=== PATIENT | female | born 1965 | race Caucasian/White ===

== ENCOUNTER 2017-09-04 18:43 | Emergency (ER) | payer SELFPAY ==
[~2017-09-04] VITALS: Ht 152.4 cm; Wt 88.5 kg
[~2017-09-04 18:43] MED LIST: BLISOVI FE 1-21 EACH PO; SERTRALINE HCL100 MG PO
--- NOTE | 2017-09-04 19:21 | ED GENERAL ADULT ---
History of Present Illness General Chief Complaint: General Adult Stated Complaint: [facility],"EPISODE OF BURNING IN BACK AND CHEST" Source: patient Exam Limitations: no limitations Vital Signs & Intake/Output Vital Signs & Intake/Output Vital Signs Date Time Temp Pulse Resp B/P B/P Pulse O2 O2 Flow FiO2 Mean Ox Delivery Rate 09/04 2219 98.9 76 20 112/75 98 Room Air 09/04 2023 97.0 67 16 124/72 97 Room Air 09/04 1909 98.3 80 16 142/81 98 Room Air Room Air Allergies Coded Allergies: No Known Allergies (09/04/17) Reconcile Medications Aspirin (Ecotrin*) 81 MG TABLET.DR 1 TAB PO DAILY HEART/BLOOD (Reported) Multiple Vitamin (Multivitamins) 1 EACH TABLET 1 TAB PO DAILY SUPPLEMENT ( Reported) Norethindrone-E.estradiol-Iron (Blisovi Fe 1-20 Tablet) 1 MG-20 MCG (21)/75 MG ( 7) TABLET 1 TAB PO DAILY CONTROL (Reported) Sertraline HCl 100 MG TABLET 1.5 TAB PO DAILY MENTAL HEALTH (Reported) Triage Note: PT TO TRIAGE WITH PAIN ACCROSS HER SHOULDER BLADES AT WORK. PT STATES HER CHEST ALSO FELT BURNING. PT FELT DIZZY SWEATY AND NAUSEA. ALL SYMPTOMDS STARTED AT 1700 Triage Nurses Notes Reviewed? yes Onset: Abrupt Duration: hour(s): Timing: recent history Injury Environment: work Severity: severe Severity Numbers: 9 No Modifying Factors: none Associated Symptoms: chest pain HPI: Patient is a 51-year-old female presenting to the emergency department with chief complaint of chest pain with associated diaphoresis and nausea that started approximately 4:45 PM and lasted approximately 25-30 minutes and then resolve slowly. Patient reports she feels fatigued. She described the pain as burning in nature. Pain does not radiate. Currently asymptomatic. Similar symptoms 3 months ago and she was evaluated by [facility] and had an outpatient stress test which was negative. Patient denies any recent travel, no recent surgeries. She does take hormonal supplements for history of endometriosis. Denies any vomiting but has had nausea. Denies any change in bowel or bladder function. She does admit that she's been under a lot of stress lately. (Josie JOHN,June) Past History Travel History Traveled to [place] past 21 day No Medical History Any Pertinent Medical History? 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 No (June Torres) Review of Systems Review of Systems Constitutional: Reports: malaise, weakness. Comments Review of systems: See HPI, All other systems negative. Constitutional, no chills fever or weight loss HEENT: No visual changes no sore throat no congestion Cardiovascular: No palpitation , orthopnea or ankle swelling Skin, no jaundice no rashes Respiratory: No dyspnea cough sputum or hemoptysis GI:no vomiting : No dysuria No hematuria Muscle skeletal: no back pain, no neck pain, Neurologic: No numbness no confusion Psych: No stress anxiety or depression,. Heme/endocrine: No bruising no bleeding no polyuria or polydipsia Immunology: No splenectomy or history of AIDS (June Torres) Physical Exam Physical Exam General Appearance: well developed/nourished, no apparent distress, alert, awake , comfortable Comments: Well-developed well-nourished person in no acute distress HEENT: Nose is atraumatic. External auditory canal and Tympanic membranes clear. Pharynx normal. No swelling or edema. Neck: Supple, no lymphadenopathy, Back: Nontender, no CVA tenderness. Full range of motion Cardiovascular: Regular rate and rhythms no murmurs rubs or gallops, normal JVP Respiratory: Chest nontender. No respiratory distress.breath sounds clear to auscultation bilaterally Abdomen: Soft, nontender nondistended, no appreciable organomegaly. Normal bowel sounds. No ascites, no rebound or guarding. Extremity: No edema, no calf tenderness to palpation, normal and equal pulses. Neuro: Alert oriented x3, motor sensory normal Skin: No appreciable rash on exposed skin, skin is warm and dry. Psych: Mood and affect is normal, memory and judgment is normal. Core Measures ACS in differential dx? Yes CVA/TIA Diagnosis: No Sepsis Present: No Sepsis Focused Exam Completed? No (June Torres) Progress Differential Diagnoses I considered the following diagnoses in my evaluation of the patient: ACS, pulmonary embolus, generalized anxiety, nonspecific chest pain, pleurisy,) meningitis CHF Plan of Care: Orders Procedure Date/time Status TROPONIN LEVEL 09/04 2314 Complete EKG 09/04 2314 Active Telemetry/Account Manager Relief 09/04 1946 Active Add-on Test (ER Only) 09/04 1945 Active D-DIMER 09/04 1914 Complete TROPONIN LEVEL 09/04 1910 Complete COMPREHENSIVE METABOLIC PANEL 09/04 1910 Complete CBC WITHOUT DIFFERENTIAL 09/04 1910 Complete EKG 09/04 184 Active Laboratory Tests 09/04/17 2255: Troponin I < 0.01 09/04/171914: Anion Gap 12, Estimated GFR > 60, BUN/Creatinine Ratio 28.8 H, Glucose 106 H, Calcium 10.1, Total Bilirubin 0.5, AST 103 H, ALT 201 H, Alkaline Phosphatase 89, Troponin I < 0.01, Total Protein 8.0, Albumin 4.5, Globulin 3.5, Albumin/ Globulin Ratio 1.3, D-Dimer High Sensitivty < 200, CBC w Diff NO MAN DIFF REQ, RBC 4.87, MCV 83.4, MCH 28.5, RDW 12.8, MPV 7.9, Gran % 71.0, Lymphocytes % 22.3 , Monocytes % 5.5, Eosinophils % 0.9, Basophils % 0.3, Absolute Granulocytes 7.4 H, Absolute Lymphocytes 2.3, Absolute Monocytes 0.6, Absolute Eosinophils 0.1, Absolute Basophils 0, PUBS MCHC 34.2 Diagnostic Imaging: Viewed by Me: Radiology Read. Discussed w/RAD: Radiology Read. 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 COMPARISON: 05/09/2017. TECHNIQUE: PA and lateral views of the chest were obtained. FINDINGS: The cardiac silhouette is not enlarged. The mediastinal and hilar contours are unremarkable. There are neither pleural effusions nor pneumothoraces. There are no consolidations. The osseous structures are unremarkable. IMPRESSION: No evidence for acute disease. DICTATED BY: Tobin Jay MD DATE/TIME DICTATED:09/04/172023 EDUCATION INSTRUCTOR: JAMISON DATE/TIME TRANSCRIBED:09/04/172023 CONFIDENTIAL, DO NOT COPY WITHOUT APPROPRIATE AUTHORIZATION. <Electronically signed in Other Vendor System> SIGNED BY: Tobin Jay MD 09/04/172027 Initial ED EKG: NSR (SINUS RHYTHM AT 68 BPM) Prior EKG: unchanged Hand-Off Endorsed To: Michael Beltran MD Endorsed Time: 2299 Pending: EKG, labs Comments: 09/04/2017 9:57:51 PM d-dimer negative, as his first troponin negative. EKG is sinus rhythm. Patient still asymptomatic. Spoke with Dr. Pablo, recommending repeat repeat troponin and EKG 4 hours from the first, is unchanged patient can be discharged home. 09/04/2017 10:59:06 PM patient will be signed out to Dr. BELTRAN pending repeat EKG and troponin (June Torres) Comments: EKG unchanged, troponin negative (Michael Beltran MD) Departure Departure Disposition: HOME OR SELF CARE Condition: Stable Clinical Impression Primary Impression: Chest pain Referrals: Mayi Caputo (PCP/Family) Gt Pablo MD Additional Instructions: Follow-up with Dr. Pablo,, next 1-2 days to schedule an appointment within the next week. Continue taking all daily medications. Return for worsening symptoms or concerns. Departure Forms: Customer Survey General Discharge Information (June Torres) PA/RURAL MAIL CARRIER Co-Sign Statement Statement: ED Attending supervision documentation- x I saw and evaluated the patient. I have also reviewed all the pertinent lab results and diagnostic results. I agree with the findings and the plan of care as documented in the PA's/RURAL MAIL CARRIER's documentation. [] I have reviewed the ED Record and agree with the PA's/RURAL MAIL CARRIER's documentation. [] Additions or exceptions (if any) to the PAs/RURAL MAIL CARRIER's note and plan are summarized below: [] (Michael Beltran MD) Critical Care Note Critical Care Note Critical Care Time: non-applicable (June Torres)
[2017-09-04] MEDS ORDERED: MULTIVITAMINS1 EAC9 PO (19:35)
[2017-09-04] MEDS ORDERED: ASPIRIN EC81 M1 PO (19:35)
[2017-09-04 19:40] LABS: ABSOLUTE BASOPHIL COUNT 0 /CUMM (0.0-0.2); ABSOLUTE EOSINOPHIL COUNT 0.1 /CUMM (0.0-0.7); ABSOLUTE GRANULOCYTE CT 7.4 /CUMM (1.4-6.5); ABSOLUTE LYMPH COUNT 2.3 /CUMM (1.2-3.4); ABSOLUTE MONOCYTE COUNT 0.6 /CUMM (0.10-0.60); BASOPHIL % 0.3 % (0.0-2.0); EOSINOPHIL % 0.9 % (0-5); HEMATOCRIT 40.6 % (37-47); MEAN CORPUSCULAR HGB 28.5 PG (27.0-31.0); MEAN CORPUSCULAR HGB CONC 34.2 G/DL (33.0-37.0); MEAN CORPUSCULAR VOLUME 83.4 FL (81.0-99.0); MEAN PLATELET VOLUME 7.9 FL (7.4-10.4); PLATELET COUNT 272 /CUMM (130-400); RBC DISTRIBUTION WIDTH 12.8 % (11.5-14.5); RED BLOOD CELL CT 4.87 /CUMM (4.20-5.40); WHITE BLOOD CELL COUNT 10.4 /CUMM (4.8-10.8)
--- NOTE | 2017-09-04 20:28 | RADIOLOGY REPORT ---
EXAMINATION: CHEST 2 VIEWS CLINICAL INFORMATION: Chest pain. COMPARISON: 05/09/2017. TECHNIQUE: PA and lateral views of the chest were obtained. FINDINGS: The cardiac silhouette is not enlarged. The mediastinal and hilar contours are unremarkable. There are neither pleural effusions nor pneumothoraces. There are no consolidations. The osseous structures are unremarkable. IMPRESSION: No evidence for acute disease.
[2017-09-04 23:41] VITALS: BP 123/82
== END 2017-09-04 23:41 ==
LOC: ERH 18:43
PROVIDERS: Emergency Medicine
DX: R07.9 Chest pain, unspecified (principal)
CPT/HCPCS: 71046; 93005; 93010